=== PATIENT | male | born 1960 | race Caucasian/White ===

== ENCOUNTER → 2016-10-23 | Outpatient (REF) ==
--- NOTE | 2016-10-23 14:45 | REP ---
LUMBAR SPINE, THREE VIEWS: HISTORY: Degenerative disc disease. There is no acute fracture or subluxation. The L3-4 through L5-S1 intervertebral discs are decreased in height consistent with disc degeneration. Osteophytes are present from L3 through L5. There is minimal scoliosis convex to the left. IMPRESSION: Degenerative change as described above. Signed by Devante Chavez MD 10/23/2016 02:48 P
== END ==
LOC: M SMT 13:16
PROVIDERS: ATTEND Internal Medicine
DX: Z02.9 Encounter for administrative examinations, unspecified (principal)

== ENCOUNTER 2020-11-23 11:44 | Emergency (ER) | payer BC ==
[~2020-11-23] VITALS: Ht 167.6 cm; Wt 53.7 kg
[2020-11-23] MEDS ORDERED: ATOR40TA75 (12:17)
== END 2020-11-23 13:58 | disposition left against medical advice (07) ==
LOC: M ED 11:44
DX: Z53.21 Procedure and treatment not carried out due to patient leaving prior to being seen by health care provider (principal)

== ENCOUNTER → 2025-01-12 | Outpatient (CLI) | payer OTHER ==
[~2025-01-12] MED LIST: ATOR40TA75
== END ==
LOC: M RAD 13:25
PROVIDERS: ATTEND Registered Nurse
DX: J43.9 Emphysema, unspecified (principal); R91.1 Solitary pulmonary nodule; Z87.891 Personal history of nicotine dependence